=== PATIENT | male | born 2000 | race Hispanic/Latino ===

== ENCOUNTER 2022-09-10 01:25 | Emergency (ER) | payer MEDICAID, OTHER ==
[~2022-09-10] VITALS: Ht 167.6 cm; Wt 57.6 kg
[2022-09-10] MEDS ORDERED: CYCLOBENZAPRINE HCL 10 MG TABLET PO ONE (04:00)
[2022-09-10] MEDS ORDERED: IBUPROFEN 800 MG TAB PO ONE (04:00)
[2022-09-10] MEDS ORDERED: IBUP-1493 PO (05:16)
[2022-09-10] MEDS ORDERED: AMOX500C2 PO (05:16)
[2022-09-10 05:21] VITALS: BP 122/70
== END 2022-09-10 05:23 | disposition home or self-care (01) ==
LOC: EDH 01:25
DX: J02.0 Streptococcal pharyngitis (principal)
CPT/HCPCS: 72050; 87880